=== PATIENT | female | born 1990 | race Caucasian/White ===

== ENCOUNTER 2017-11-14 19:00 | Emergency (ER) | payer SELFPAY ==
[2017-11-14 19:30] VITALS: BP 126/76; PULSE 78; TEMP 98.6; BMI 25.9
[2017-11-14] MEDS ORDERED: AMOX TR/POT CLAV 875MG/125MG TABLETS (FP) PO ONE (19:43)
[2017-11-14] MEDS ORDERED: KETOROLAC TROMETHAMINE 30 MG/1 ML VIAL IM ONE (19:43)
[2017-11-14] MEDS ORDERED: KETOROLAC TROMETHAMINE 30 MG/1 ML VIAL ONE (19:45)
[2017-11-14] MEDS ORDERED: AMOX TR/POT CLAV 875MG/125MG TABLETS (FP) ONE (19:45)
--- NOTE | 2017-11-14 19:46 | PDOC ---
History of Present Illness - General History Source: Patient Exam Limitations: No Limitations <Bishop Caraballo - Last Filed: 11/14/17 19:52> - History of Present Illness Initial Comments: 11/14/17 19:55 27 year old female with past medical history of ADHD who presents to the ED with complaints of toothache and swelling of lower jaw that began a few days ago. Patient states she thought she had a cavity but could not get the proper dental care due to lack of insurance. She reports taking oxycodone and advil for her pain and using Orajel with minimal relief. She denies any associated chills or fevers, but states she's been having hot flashes. Patient also adds she was being treated for a UTI and just finished a course of Macrobid. She reports a history of Staph infection in the past. Denies any nausea, vomiting, diarrhea, cough, SOB, chest pain, or urinary complaints. <Mariely Beasley - Last Filed: 11/14/17 20:17> - General Chief Complaint: Toothache Stated Complaint: TOOTHACHE Time Seen by Provider: 11/14/17 19:15 Past History - Past Medical History COPD: No Psychiatric Problems: Yes (ANXIETY, ADHD) - Suicide/Smoking/Psychosocial Hx Smoking History: Current every day smoker Have you smoked in the past 12 months: Yes Number of Cigarettes Smoked Daily: 20 Information on smoking cessation initiated: Yes 'Breaking Loose' booklet given: 11/14/17 Hx Alcohol Use: Yes Drug/Substance Use Hx: Yes Substance Use Type: Alcohol, Marijuana, Opiates <Bishop Caraballo - Last Filed: 11/14/17 19:52> <Mariely Beasley - Last Filed: 11/14/17 20:17> - Past Medical History Allergies/Adverse Reactions: Allergies Allergy/AdvReac Type Severity Reaction Status Date / Time Sulfa (Sulfonamide Allergy Mild Rash Verified 11/14/17 19:15 Antibiotics) Home Medications: Ambulatory Orders Alprazolam [Xanax] 0.5 mg PO TID PRN 11/14/17 Amoxicillin/Potassium Clav [Augmentin 875-125 Tablet] 1 each PO BID #14 tablet 11/14/17 Dextroamphetamine/Amphetamine [Adderall Xr 20 mg Capsule] 20 mg PO DAILY Ibuprofen [Advil -] 400 mg PO TID PRN 11/14/17 Naproxen 500 mg PO BID PRN #20 tablet 11/14/17 Nitrofurantoin Monohyd/M-Cryst [Macrobid -] 100 mg PO BID 11/14/17 Oxycodone HCl [Oxycontin] 40 mg PO ONCE 11/14/17 Review of Systems - Review of Systems Able to Perform ROS?: Yes Comments:: 11/14/17 20:00 GENERAL/CONSTITUTIONAL: No fever or chills. No weakness. HEAD, EYES, EARS, NOSE AND THROAT:(+) toothache, lower jaw swelling. No change in vision. No ear pain or discharge. No sore throat. CARDIOVASCULAR: No chest pain or shortness of breath. RESPIRATORY: No cough, wheezing, or hemoptysis. GASTROINTESTINAL: No nausea, vomiting, diarrhea or constipation. GENITOURINARY: No dysuria, frequency, or change in urination. MUSCULOSKELETAL: No joint or muscle swelling or pain. No neck or back pain. SKIN: No rash NEUROLOGIC: No headache, vertigo, loss of consciousness, or change in strength/ sensation. ENDOCRINE: No increased thirst. No abnormal weight change. HEMATOLOGIC/LYMPHATIC: No anemia, easy bleeding, or history of blood clots. ALLERGIC/IMMUNOLOGIC: No hives or skin allergy. All Other Systems: Reviewed and Negative <Mariely Beasley - Last Filed: 11/14/17 20:17> *Physical Exam - Vital Signs Last Vital Signs Temp Pulse Resp BP Pulse Ox 98.6 F 78 18 126/76 100 11/14/17 19:14 11/14/17 19:14 11/14/17 19:14 11/14/17 19:14 11/14/17 19:14 <Bishop Caraballo - Last Filed: 11/14/17 19:52> - Vital Signs Last Vital Signs Temp Pulse Resp BP Pulse Ox 98.6 F 78 18 126/76 100 11/14/17 19:14 11/14/17 19:14 11/14/17 19:14 11/14/17 19:14 11/14/17 19:14 - Physical Exam Comments: 11/14/17 20:01 GENERAL: Awake, alert, and fully oriented, in no acute distress HEAD: No signs of trauma EYES: PERRLA, EOMI, sclera anicteric, conjunctiva clear ENT: Mild edema along the left mandibular region, no induration or fluctuance appreciated, no obvious gum infection, tooth 19 decay appreciated, clear posterior oropharynxAuricles normal inspection, hearing grossly normal, nares patent. NECK: Normal ROM, supple, no lymphadenopathy, JVD, or masses LUNGS: Breath sounds equal, clear to auscultation bilaterally. No wheezes, and no crackles HEART: Regular rate and rhythm, normal S1 and S2, no murmurs, rubs or gallops ABDOMEN: Soft, nontender, normoactive bowel sounds. No guarding, no rebound. No masses EXTREMITIES: Normal range of motion, no edema. No clubbing or cyanosis. No cords, erythema, or tenderness NEUROLOGICAL: Cranial nerves II through XII grossly intact. Normal speech, normal gait SKIN: Warm, Dry, normal turgor, no rashes <Mariely Beasley - Last Filed: 11/14/17 20:17> ED Treatment Course - Medications Given in the ED: ED Medications Discontinued Medications Generic Name Dose Route Start Last Admin Trade Name Kendallq PRN Reason Stop Dose Admin Amoxicillin/Clavulanate Potassium 1 tab 11/14/17 19:43 11/14/17 19:45 Augmentin - 875mg Tablet PO 11/14/17 19:44 1 tab ONCE ONE Administration Ketorolac Tromethamine 30 mg 11/14/17 19:43 11/14/17 19:48 Toradol Injection - IM 11/14/17 19:44 30 mg ONCE ONE Administration <Mariely singh - Last Filed: 11/14/17 20:17> Medical Decision Making - Medical Decision Making 11/14/17 19:52 A portion of this note was documented by scribe services under my direction. I have reviewed the details of the note, within reason, and agree with the documentation with the following case summary and management plan written by me. Patient treated in the ED. Nursing notes are reviewed and incorporated into the medical decision-making. Vital signs reviewed. Vital Signs Temp Pulse Resp BP Pulse Ox 98.6 F 78 18 126/76 100 11/14/17 19:14 11/14/17 19:14 11/14/17 19:14 11/14/17 19:14 11/14/17 19:14 27-year-old pleasant female patient with past mental history of ADHD presents with tooth 19 infection. The patient reports the symptoms occur several days ago and has progressively worsened. She started noticing some increasing edema and swelling along the left mandibular region. No fevers or chills. Patient initially had attempted to make outpatient appointments but does not have dental insurance. She had attempted to go to [facility] but given the length of time in the hospital, she had left. The symptoms have persisted and came into the ER. As noted, the patient was recently treated for urinary tract infection with Macrobid. Denies urinary symptoms now. Patient's family has developed a dental infection. No clinical evidence of abscess at this time. However, patient is at risk for tooth abscess. I will initiate Augmentin and NSAIDs for the symptoms. I advised the patient that if the swelling does not improve or worsens after the next 48-72 hours that she should return to the ER or follow with a dentist. The patient verbalized understanding agrees with plan. Patient's significant other will drive her home. I discussed the physical exam findings, ancillary test results and final diagnoses with the patient. I answered all of the patient's questions. The patient was satisfied with the care received and felt comfortable with the discharge plan and treatment plan. The patient will call their primary care physician within 24 hours to arrange follow-up and will return to the Emergency Department with any new, persistant or worsening symptoms. <Bishop Caraballo - Last Filed: 11/14/17 19:52> *DC/Admit/Observation/Transfer - Discharge Dispostion Decision to Admit order: No <Bishop Caraballo - Last Filed: 11/14/17 19:52> - Attestations Scribe Attestion: 11/14/17 20:17 Documentation prepared by Mariely Beasley, acting as medical cost consultant for Bishop Caraballo MD. <Mariely Beasley - Last Filed: 11/14/17 20:17> Diagnosis at time of Disposition: Dental infection - Discharge Dispostion Disposition: HOME Condition at time of disposition: Good - Prescriptions Prescriptions: Amoxicillin/Potassium Clav [Augmentin 875-125 Tablet] 1 each PO BID #14 tablet Naproxen 500 mg PO BID PRN #20 tablet PRN Reason: Pain - Patient Instructions Printed Discharge Instructions: DI for Tooth Decay, DI for Dental Pain Additional Instructions: You have a dental infection. It is very important that you take the antibiotic augmentin every 12 hours for 1 week. Please complete the course of antibiotics. For pain and inflammation, you may take 500 mg naproxen every 12 hours as needed. Drink plenty of fluids. If you start to notice at 72 hours that the symptoms are persistent or worse, please go see a dentist or return to the emergency room. Either way, given your tooth problem, please make an appointment with a dentist either way.
== END 2017-11-14 19:56 | disposition home or self-care (01) ==
LOC: FER 19:00
PROC: 3E0233Z Introduction of Anti-inflammatory into Muscle, Percutaneous Approach (ICD-10-PCS; principal; 2017-11-14)
DX: K04.7 Periapical abscess without sinus (principal); F90.9 Attention-deficit hyperactivity disorder, unspecified type
CPT/HCPCS: 99282-25

== ENCOUNTER 2019-03-04 11:33 | Emergency (ER) | payer OTHER ==
[2019-03-04 12:00] VITALS: BP 120/78; PULSE 77; TEMP 98.7; BMI 27.4
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
== END 2019-03-04 12:35 | disposition home or self-care (01) ==
LOC: FER 11:33
DX: T20.20XA Burn of second degree of head, face, and neck, unspecified site, initial encounter (principal); Y04.2XXA Assault by strike against or bumped into by another person, initial encounter; Y93.89 Activity, other specified; Y92.89 Other specified places as the place of occurrence of the external cause; Z88.2 Allergy status to sulfonamides; F41.9 Anxiety disorder, unspecified; F90.9 Attention-deficit hyperactivity disorder, unspecified type; F17.210 Nicotine dependence, cigarettes, uncomplicated
CPT/HCPCS: 99283-25